=== PATIENT | female | born 1960 | race Caucasian/White ===

== ENCOUNTER → 2020-12-14 14:03 | Outpatient (CLI) | payer OTHER | END | disposition home or self-care (01) | LOC: D.LAB 14:03 | PROVIDERS: ATTEND Internal Medicine Pulmonary Disease | DX: J44.9 Chronic obstructive pulmonary disease, unspecified (principal) ==

== ENCOUNTER 2020-12-20 12:59 | Inpatient (IN) | payer MEDICARE ==
[~2020-12-20] VITALS: Ht 157.5 cm; Wt 79.4 kg
--- NOTE | 2020-12-20 13:50 | NUR ---
PT ARRIVED TO ROOM DIRECT ADMIT VIA WHEEL CHAIR. ON 2L NC. FAMILY AT BEDSIDE. ALL NEEDS MET AT THIS TIME. CLWR.
[2020-12-20 13:55] LABS: BASOPHILS 0.2 % (0-2); EOSINOPHILS 0.2 % (0-7); HEMATOCRIT 42.5 % (36.0-48.0); HEMOGLOBIN 13.9 g/dL (12-16); LYMPHOCYTES 4.7 % (15-50); MCHC 32.7 g/dL (31.0-37.0); MCV 91.6 fL (80.0-100.0); MEAN PLATELET VOLUME 10.3 fL (7.4-10.4); MONOCYTES 5.1 % (2-11); NEUTROPHILS 89.8 % (40-80); PLATELET COUNT 145 10x3/uL (130-400); RBC 4.64 10x6/uL (4.00-5.40); RDW 13.8 % (11.5-14.5); WBC 17.1 10x3/uL (4.8-10.8)
[2020-12-20] MEDS ORDERED: AMOXICILLIN500 M1 PO (14:04)
[2020-12-20] MEDS ORDERED: BAYER CHEWABLE81 MG PO (14:04)
[2020-12-20] MEDS ORDERED: LIPITOR20 MG PO (14:05)
[2020-12-20] MEDS ORDERED: BYSTOLIC5 MG PO (14:05)
[2020-12-20 14:07] LABS: CALC OSMOLALITY 280 mosm/kg (275-300); CALCIUM 9.4 mg/dL (8.5-10.1); CARBON DIOXIDE 27.3 mmol/L (21.0-32.0); CHLORIDE - SERUM 101 mmol/L (98-107); CREATININE - SERUM 0.7 mg/dL (0.6-1.3); GLUCOSE 188 mg/dL (74-106); POTASSIUM - SERUM 3.5 mmol/L (3.5-5.1); SODIUM 138 mmol/L (136-145); UREA NITROGEN 12 mg/dL (7-18); eGFR NON AFRICAN AMERICAN 90 mL/min (90-120)
[2020-12-20] MEDS ORDERED: CYANOCOBAL1000 MCG/4 IM (14:08)
[2020-12-20] MEDS ORDERED: FUROSEMIDE20 MG PO (14:09)
[2020-12-20] MEDS ORDERED: HYDROCODONE-AC1 EAC2 PO (14:10)
[2020-12-20] MEDS ORDERED: ISOSORBIDE MONO30 M1 PO (14:11)
[2020-12-20] MEDS ORDERED: SINGULAIR10 MG PO (14:12)
[2020-12-20] MEDS ORDERED: MULTI-DAY VITAM1 TAB PO (14:12)
[2020-12-20] MEDS ORDERED: MELATONIN5 M3 PO (14:12)
[2020-12-20] MEDS ORDERED: NITROSTAT0.4 MG SL (14:13)
[2020-12-20] MEDS ORDERED: CORTISPORIN OTI10 M1 EACH EAR (14:13)
[2020-12-20 14:14] LABS: ALBUMIN 3.1 g/dL (3.4-5.0); ALKALINE PHOSPHATASE 102 U/L (30-120); ALT (SGPT) 17 U/L (10-68); BILIRUBIN - TOTAL 1.26 mg/dL (0.2-1.3); PROTEIN - SERUM 7.4 g/dL (6.4-8.2)
[2020-12-20] MEDS ORDERED: TRINTELLIX20 MG PO (14:14)
[2020-12-20] MEDS ORDERED: ZINC50 MG PO (14:15)
[2020-12-20] MEDS ORDERED: ASCORBIC ACID500 MG PO (14:15)
[2020-12-20] MEDS ORDERED: ALBUTEROL SULF8.5 GM INH (14:16)
[2020-12-20] MEDS ORDERED: IPRAT-ALBUT 0.5-3 ML UPD (14:18)
[2020-12-20] MEDS ORDERED: SPIRIVA RESPIMAT4 GM INH (14:19)
[2020-12-20] MEDS ORDERED: SYMBICORT 16010.2 GM INH (14:20)
[2020-12-20] MEDS ORDERED: TUMS X-STR300 MG PO (14:20)
--- NOTE | 2020-12-20 15:37 | NUR ---
PT LYING IN BED. IV STARTED IN R HAND 22G. ABX STARTED AT THIS TIME. ALL NEEDS MET, CLWR.
[2020-12-20 15:51] VITALS: BP 95/60; BMI 32.1
[2020-12-20 16:00] VITALS: BP 95/60
--- NOTE | 2020-12-20 18:32 | NUR ---
PT SITTING ON SIDE OF BED. ASKED NURSE TO TURN O2 DOWN TO 2L. ALL NEEDS ARE MET. CLWR.
[2020-12-20 21:40] VITALS: BP 115/65
[2020-12-21 00:05] VITALS: BP 127/72
[2020-12-21 03:29] VITALS: BP 130/79
--- NOTE | 2020-12-21 06:01 | NUR ---
NO C/O OR CONCERNS DURING THE NIGHT. PTS DAUGHTER CURRENTLY AT BEDSIDE ASSISTING WITH BATH, DENIES NEEDS. CL IN REACH. WILL CTM.
[2020-12-21 06:38] LABS: BASOPHILS 0.1 % (0-2); EOSINOPHILS 0 % (0-7); HEMATOCRIT 42.2 % (36.0-48.0); HEMOGLOBIN 14.1 g/dL (12-16); LYMPHOCYTES 5.1 % (15-50); MCH 30.3 pg (26.0-34.0); MCHC 33.3 g/dL (31.0-37.0); MEAN PLATELET VOLUME 11.6 fL (7.4-10.4); MONOCYTES 0.9 % (2-11); NEUTROPHILS 93.9 % (40-80); PLATELET COUNT 166 10x3/uL (130-400); RBC 4.64 10x6/uL (4.00-5.40); RDW 13.7 % (11.5-14.5); WBC 13.4 10x3/uL (4.8-10.8)
[2020-12-21 07:08] LABS: ALKALINE PHOSPHATASE 106 U/L (30-120); ALT (SGPT) 18 U/L (10-68); BILIRUBIN - TOTAL 0.63 mg/dL (0.2-1.3); CALC OSMOLALITY 284 mosm/kg (275-300); CALCIUM 9.3 mg/dL (8.5-10.1); CARBON DIOXIDE 26.6 mmol/L (21.0-32.0); CHLORIDE - SERUM 102 mmol/L (98-107); CREATININE - SERUM 0.8 mg/dL (0.6-1.3); GLUCOSE 225 mg/dL (74-106); MAGNESIUM - SERUM 2.3 mg/dL (1.8-2.4); POTASSIUM - SERUM 4.1 mmol/L (3.5-5.1); PROTEIN - SERUM 7.6 g/dL (6.4-8.2); SODIUM 139 mmol/L (136-145); UREA NITROGEN 13 mg/dL (7-18); eGFR NON AFRICAN AMERICAN 77 mL/min (90-120)
--- NOTE | 2020-12-21 08:00 | NUR ---
PT RECEIVED AWAKE AND ALERT. STATES FEELS BETTER WITH BREATHING. MEDS GIVEN. ISOSORBIDE HELD DUE TO PT STOPPED TAKING PER CARDIO ORDERS.
[2020-12-21 09:20] VITALS: BP 135/63
--- NOTE | 2020-12-21 10:43 | NUR ---
INCENTIVE SPIROMETRY AT BEDSIDE, INSTRUCTIONS GIVEN. PT STATES SHE HAS USED DURING PRIOR VISITS.
[2020-12-21 12:42] VITALS: BP 132/60
[2020-12-21 13:21] VITALS: Ht 157.5 cm; Wt 79.4 kg
[2020-12-21 16:57] VITALS: BP 126/69
--- NOTE | 2020-12-21 19:45 | NUR ---
INITIAL ROUNDS AND ASSESSMENT COMPLETED. PT RESTING IN BED. DAUGHTER VISITING. UPDATE GIVEN TO DAUGHTER WITH PATIENTS PERMISSION. PT EXCITED THAT HER WBC COUNT IS GOING DOWN (DAUGHTER IS A NURSE). O2 @ 2L/NC WITH NON LABORED RESPIRATIONS. PIV TO RFA SALINE LOCKED. CALL LIGHT IN REACH.
[2020-12-21 20:45] VITALS: BP 127/59
--- NOTE | 2020-12-21 22:30 | NUR ---
ALL BEDTIME MEDS GIVEN. PT RESTING WITH NO DISTRESS. CALL LIGHT IN REACH.
--- NOTE | 2020-12-22 00:05 | NUR ---
PT RESTING WITH NO DISTRESS. CALL LIGHT IN REACH.
[2020-12-22 00:10] VITALS: BP 111/63
[2020-12-22 05:13] VITALS: BP 118/68
[2020-12-22 05:16] LABS: BASOPHILS 0.2 % (0-2); EOSINOPHILS 0 % (0-7); HEMATOCRIT 39.3 % (36.0-48.0); HEMOGLOBIN 13.2 g/dL (12-16); LYMPHOCYTES 6.5 % (15-50); MCH 30.7 pg (26.0-34.0); MCHC 33.5 g/dL (31.0-37.0); MCV 91.8 fL (80.0-100.0); MEAN PLATELET VOLUME 11.7 fL (7.4-10.4); MONOCYTES 2.4 % (2-11); NEUTROPHILS 90.9 % (40-80); PLATELET COUNT 159 10x3/uL (130-400); RBC 4.28 10x6/uL (4.00-5.40); RDW 13.7 % (11.5-14.5); WBC 14.8 10x3/uL (4.8-10.8)
[2020-12-22 05:36] LABS: ALBUMIN 2.8 g/dL (3.4-5.0); ANION GAP 10.7 mmol/L (8-16); BILIRUBIN - TOTAL 0.33 mg/dL (0.2-1.3); CARBON DIOXIDE 29.5 mmol/L (21.0-32.0); CREATININE - SERUM 0.9 mg/dL (0.6-1.3); MAGNESIUM - SERUM 2.2 mg/dL (1.8-2.4); POTASSIUM - SERUM 4.2 mmol/L (3.5-5.1); PROTEIN - SERUM 7.1 g/dL (6.4-8.2)
--- NOTE | 2020-12-22 08:18 | NUR ---
AAOX4 UPON ENTERING. ADMINISTERED MEDICATION, NO DIFFICULTIES. RESTING RECLINED IN BED. ASSESSMENT PERFORMED AT THIS TIME. DENIES ANY NEEDS. BED IN LOWEST POSITION, BED RAILS X2, CALL LIGHT WITHIN REACH. WILL CONTINUE POC.
[2020-12-22 08:25] VITALS: BP 113/77
--- NOTE | 2020-12-22 09:52 | NUR ---
I have reviewed this patient and I concur with the Shift Assessment completed by the Licensed Practical Nurse today this shift.
--- NOTE | 2020-12-22 15:12 | NUR ---
HUNG IV ABX, TOLERATED WELL. RESTING IN BED UPRIGHT. DENIES ANY NEEDS AT THIS TIME. WILL CONTINUE POC.
--- NOTE | 2020-12-22 20:00 | NUR ---
INITIAL ROUNDS AND ASSESSMENT COMPLETED. PT RESTING. CALL LIGHT IN REACH.
[2020-12-22 20:54] VITALS: BP 128/68
[2020-12-23 01:03] VITALS: BP 120/68
[2020-12-23 06:03] VITALS: BP 143/82
[2020-12-23 06:45] LABS: BASOPHILS 0.1 % (0-2); EOSINOPHILS 0 % (0-7); HEMATOCRIT 38.6 % (36.0-48.0); HEMOGLOBIN 12.7 g/dL (12-16); LYMPHOCYTES 8.8 % (15-50); MCH 29.9 pg (26.0-34.0); MCV 90.4 fL (80.0-100.0); MEAN PLATELET VOLUME 11.2 fL (7.4-10.4); MONOCYTES 2.4 % (2-11); NEUTROPHILS 88.7 % (40-80); PLATELET COUNT 167 10x3/uL (130-400); RBC 4.27 10x6/uL (4.00-5.40); RDW 13.6 % (11.5-14.5); WBC 11.5 10x3/uL (4.8-10.8)
[2020-12-23 08:00] VITALS: BP 138/70
[2020-12-23 08:12] LABS: ALBUMIN 2.8 g/dL (3.4-5.0); ALKALINE PHOSPHATASE 83 U/L (30-120); BILIRUBIN - TOTAL 0.22 mg/dL (0.2-1.3); CALC OSMOLALITY 285 mosm/kg (275-300); CALCIUM 8.7 mg/dL (8.5-10.1); CARBON DIOXIDE 26.2 mmol/L (21.0-32.0); CHLORIDE - SERUM 102 mmol/L (98-107); CREATININE - SERUM 0.8 mg/dL (0.6-1.3); GLUCOSE 270 mg/dL (74-106); POTASSIUM - SERUM 4.3 mmol/L (3.5-5.1); PROTEIN - SERUM 6.7 g/dL (6.4-8.2); SODIUM 137 mmol/L (136-145); UREA NITROGEN 18 mg/dL (7-18); eGFR NON AFRICAN AMERICAN 77 mL/min (90-120)
[2020-12-23 08:14] LABS: ALT (SGPT) 88 U/L (10-68)
[2020-12-23 12:00] VITALS: BP 153/80
--- NOTE | 2020-12-23 13:44 | NUR ---
IV RESTARTED TO LFA WITH 22 GAUGE CATH X 1 STICK AND FLUSHED WITH NS. LINE IS PATENT.
[2020-12-23 16:00] VITALS: BP 123/82
[2020-12-23 21:00] VITALS: BP 158/93
[2020-12-24] VITALS: BP 138/91
--- NOTE | 2020-12-24 03:05 | NUR ---
RESTING IN BED WITH NO DISTRESS. RESPS EVEN/NONLABORED. CALL LIGHT IN REACH.
[2020-12-24 04:00] VITALS: BP 142/76
[2020-12-24 06:40] LABS: BASOPHILS 0.2 % (0-2); EOSINOPHILS 0 % (0-7); HEMATOCRIT 37.4 % (36.0-48.0); HEMOGLOBIN 12.8 g/dL (12-16); LYMPHOCYTES 12.7 % (15-50); MCH 30.8 pg (26.0-34.0); MCHC 34.2 g/dL (31.0-37.0); MCV 90.1 fL (80.0-100.0); MEAN PLATELET VOLUME 11.2 fL (7.4-10.4); MONOCYTES 4.4 % (2-11); NEUTROPHILS 82.7 % (40-80); PLATELET COUNT 159 10x3/uL (130-400); RBC 4.15 10x6/uL (4.00-5.40); RDW 13.6 % (11.5-14.5); WBC 8.8 10x3/uL (4.8-10.8)
[2020-12-24 07:36] LABS: ALBUMIN 2.8 g/dL (3.4-5.0); ALKALINE PHOSPHATASE 81 U/L (30-120); ALT (SGPT) 86 U/L (10-68); BILIRUBIN - TOTAL 0.34 mg/dL (0.2-1.3); CALC OSMOLALITY 284 mosm/kg (275-300); CALCIUM 8.9 mg/dL (8.5-10.1); CARBON DIOXIDE 31.1 mmol/L (21.0-32.0); CHLORIDE - SERUM 103 mmol/L (98-107); CREATININE - SERUM 0.8 mg/dL (0.6-1.3); GLUCOSE 233 mg/dL (74-106); MAGNESIUM - SERUM 2.2 mg/dL (1.8-2.4); POTASSIUM - SERUM 4.2 mmol/L (3.5-5.1); PROTEIN - SERUM 6.6 g/dL (6.4-8.2); SODIUM 138 mmol/L (136-145); UREA NITROGEN 17 mg/dL (7-18); eGFR NON AFRICAN AMERICAN 77 mL/min (90-120)
[2020-12-24 07:45] VITALS: BP 154/67
--- NOTE | 2020-12-24 08:00 | NUR ---
PT RECEIVED AWAKE AND ALERT SITTING UP IN BED. ASKING FOR COFFEE. LITTLE CRANKY AT PRESENT.
[2020-12-24 11:44] VITALS: BP 135/78
--- NOTE | 2020-12-24 13:32 | NUR ---
Nutrition Follow-up: Overall good PO intake. ST eval pending. Glu remains elevated (188->225->251-> 270->233). Diet: Cardiac PO intake: 81% avg x 4 meals No new wt; last wt: 175# (12/21) Labs noted: Glu 233, Alb 2.8 Meds noted: Miralax, Florajen, zinc sulfate, vit C, Lasix, Solumedrol -Change to cardiac carb consistent diet 2/2 consistently elevated Glu. -RD will follow up within 3 days.
[2020-12-24 15:37] VITALS: BP 135/80
--- NOTE | 2020-12-24 19:52 | NUR ---
RECIEVED UP IN BED WITH EYES OPEN AND TV ON. A/O UP AD BENTON TO B/R. DENIES ANY NEEDS AT THIS TIME.
[2020-12-24 21:00] VITALS: BP 147/77
[2020-12-25] VITALS: BP 165/78
[2020-12-25 05:12] LABS: BASOPHILS 0 % (0-2); EOSINOPHILS 0 % (0-7); HEMATOCRIT 39.3 % (36.0-48.0); HEMOGLOBIN 13.4 g/dL (12-16); LYMPHOCYTES 10.9 % (15-50); MCH 30.8 pg (26.0-34.0); MCHC 34.1 g/dL (31.0-37.0); MCV 90.3 fL (80.0-100.0); MEAN PLATELET VOLUME 10.8 fL (7.4-10.4); MONOCYTES 3.2 % (2-11); NEUTROPHILS 85.9 % (40-80); PLATELET COUNT 184 10x3/uL (130-400); RBC 4.35 10x6/uL (4.00-5.40); RDW 13.5 % (11.5-14.5); WBC 10.2 10x3/uL (4.8-10.8)
[2020-12-25 05:50] LABS: ALBUMIN 2.8 g/dL (3.4-5.0); ALKALINE PHOSPHATASE 83 U/L (30-120); ALT (SGPT) 75 U/L (10-68); BILIRUBIN - TOTAL 0.36 mg/dL (0.2-1.3); CALC OSMOLALITY 283 mosm/kg (275-300); CALCIUM 8.7 mg/dL (8.5-10.1); CARBON DIOXIDE 31.9 mmol/L (21.0-32.0); CHLORIDE - SERUM 103 mmol/L (98-107); CREATININE - SERUM 0.8 mg/dL (0.6-1.3); GLUCOSE 226 mg/dL (74-106); MAGNESIUM - SERUM 2.3 mg/dL (1.8-2.4); POTASSIUM - SERUM 4.3 mmol/L (3.5-5.1); PROTEIN - SERUM 6.5 g/dL (6.4-8.2); SODIUM 138 mmol/L (136-145); UREA NITROGEN 14 mg/dL (7-18); eGFR NON AFRICAN AMERICAN 77 mL/min (90-120)
--- NOTE | 2020-12-25 07:22 | NUR ---
PT SITTING UP IN BED. GAVE FRESH WATER. ON 2L NC, SOB AND RR LABORED. HAS A WHEEZE ON INSPIRATION AND COUGHING OFTEN. ALL NEEDS MET AT THIS TIME. CLWR.
[2020-12-25 08:00] VITALS: BP 162/83
[2020-12-25] MEDS ORDERED: TESSALON PERLE100 MG PO (11:39)
[2020-12-25] MEDS ORDERED: FLORAJEN DIGES1 EACH PO (11:40)
[2020-12-25] MEDS ORDERED: MIRALAX17 GM PO (11:40)
[2020-12-25] MEDS ORDERED: MUCINEX DM ER1 EAC1 PO (11:40)
[2020-12-25] MEDS ORDERED: AZITHROMYCIN500 MG PO (11:41)
[2020-12-25] MEDS ORDERED: VITAMIN C PO (11:42)
[2020-12-25] MEDS ORDERED: OMNICEF300 MG PO (11:42)
[2020-12-25] MEDS ORDERED: PREDNISONE10 MG PO (11:42)
--- NOTE | 2020-12-25 14:32 | MORECARE ---
CASE MANAGEMENT DISCHARGE SUMMARY PATIENT: JEFFREY GARCIA UNIT: [id number] ADM DATE: 12/20/20 AGE: 60 : 60 SEX: F ROOM/BED: D.[facility] AUTHOR: MOHINI,DOC PHYSICIAN: REFERRING PHYSICIAN: NERISSA FLOWERS MD DATE OF SERVICE: 12/25/20 Case Management Discharge Planning Summary DCP REVIEW SUMMARY ANTICIPATED D/C DATE: 12/25/2020 EXPECTED LOS : 5 CASE STATUS: DCP Initiated INITIAL REVIEW: 12/20/2020 INITIAL REVIEWER: Bette Heck FINAL DISCHARGE DISPOSITION: 01 : Home or Self Care (Routine Discharge) FINAL REVIEWER: FINAL REVIEW DATE: DCP Focus Questions & Answers QUESTION: ANSWER : PATIENT: JEFFREY GARCIA ENCOUNTER: [id number] MEDICAL RECORD#: [id number] ADMISSION DATE: 12/20/2020 DISCHARGE DATE: ATTENDING MD: NERISSA DOBBINS : AGE: 60 MARITAL STATUS: S DC PLAN ID: [id number] FACILITY: [facility] PRINTED ON: 12/25/20 14:32 CT All edits/amendments must be made on the electronic document DICTATION DATE: 12/25/201431 ASSISTANT MEDIA BUYER: TAMEKA 12/25/201431 RPT#: [id number] DC DATE: STATUS: ADM IN [facility] [address] [place] [address] END OF REPORT
--- NOTE | 2020-12-25 14:45 | MORECARE ---
CASE MANAGEMENT DISCHARGE SUMMARY PATIENT: JEFFREY GARCIA UNIT: [id number] ADM DATE: 12/20/20 AGE: 60 : 60 SEX: F ROOM/BED: D.9336 AUTHOR: MOHNII,DOC PHYSICIAN: REFERRING PHYSICIAN: NERISSA FLOWERS MD DATE OF SERVICE: 12/25/20 Case Management Discharge Planning Summary COMMENTS ENTERED DATE: 12/25/20 14:37 CT COMMENT TYPE: Discharge Planning REVIEWER: Bette Heck CM met with patient to complete discharge planning assessment and offer availability of additional needed services. Patient states that she lives independently at home prior to admission. Patient verified that home environment is safe and has electricity and running water. Patient denies need for transportation and state that she has funds for services and medications if needed. PCP is Dr. Simmons and patient uses [facility] on [address] for pharmacy. CM offered and discussed home health, rehab services, and need for any medical equipment. Patient has home oxygen with a portable unit, and nebulizer in place. Equipment obtained from [employer] Patient. Transportation home will be provided by her daughter Nydia Rivas ([phone]). Patient verbalized understanding of signed forms. IMM served, and signed copy placed on chart. JESSICA form signed for refusal of additional services or needs at this time, placed on chart. DCP REVIEW SUMMARY ANTICIPATED D/C DATE: 12/25/2020 EXPECTED LOS : 5 CASE STATUS: DCP Initiated INITIAL REVIEW: 12/20/2020 INITIAL REVIEWER: Bette Heck FINAL DISCHARGE DISPOSITION: 01 : Home or Self Care (Routine Discharge) FINAL REVIEWER: FINAL REVIEW DATE: DCP Focus Questions & Answers DCP Screen QUESTION: ANSWER High Risk Factors: : Hosp related to CHF, COPD, DM, End Stage Ds, CVA, CA DCP Evaluation QUESTION: ANSWER Patient and/or caregiver agree upon recommended discharge plan? : Yes Family / Caregiver's ability to cope with chronic illness: : a. Adequate (ability to meet patient's medical needs, ensures patient attends medical appts.) Patient's current cognitive status: : *Oriented to person, place, situation, time and present Patient's ability to cope with chronic illness : d. No chronic illness Does the patient have the ability to pay for or attain post discharge needs / services? : Yes Functional screen assessment: : No issues identified Family / Caregiver's ability to cope with chronic illness: : a. Adequate (ability to meet patient's medical needs, ensures patient attends medical appts.) Physical Status: : Independent with ADL's Equipment needed for post hospitalization: : None Is there a likelihood that the patient will require additional services to return to the preadmission environment? : N/A Living Arrangements: : Home Alone with Support Results of this evaluation have been discussed with: : Patient Patient with capacity for self-care or can be cared for in same environment as prior to hospitalization? : Yes Baseline cognitive status: : *Oriented to person, place, situation, time and present Physical environment modification needed / anticipated for discharge: : N/A Medication Management: : Patient states can read and understand medication labels Medication Management: : Patient states they do have transportation to excelsior picker medications Medication Management: : Patient states can afford medications Planned post hospital services available for patient? : N/A Pharmacy name(s): : [facility] Planned post hospital services covered by insurance plan? : N/A Does Patient have transportation to get home and to follow-up medical appointments when discharged from the hospital? : Yes Would patient like to participate in any Care Coordination programs (if applicable): : Not applicable Does the patient have electricity at home? : Yes Does the patient have running water in their house? : Yes Equipment in use: : Nebulizer Other Equipment comments: : HOME AND PORTABLE OXYGEN Equipment agency name and contact information: : [facility] PATIENT Mental health screen: : No mental health history Psychosocial status: : Independent adult (18-64) Abuse/Neglect: : None Resources / Services in place: : [facility] [place] DCP Re-evaluation QUESTION: ANSWER Would patient like to participate in any Care Coordination programs (if applicable): : Not applicable PATIENT: JEFFREY GARCIA ENCOUNTER: [id number] MEDICAL RECORD#: [id number] ADMISSION DATE: 12/20/2020 DISCHARGE DATE: ATTENDING MD: NERISSA DOBBINS : AGE: 60 MARITAL STATUS: S DC PLAN ID: [id number] FACILITY: [facility] PRINTED ON: 12/25/20 14:45 CT All edits/amendments must be made on the electronic document DICTATION DATE: 12/25/201444 GEOPHYSICAL OBSERVER: TAMEKA 12/25/201444 RPT#: [id number] DC DATE: STATUS: ADM IN [facility] [address] [place] [address] END OF REPORT
[2020-12-25 16:00] VITALS: BP 130/74
--- NOTE | 2020-12-25 16:54 | NUR ---
PT IV TAKEN OUT. CDI. PT LEFT VIA WHEELCHAIR WITH FAMILY MEMBER.
--- NOTE | 2020-12-25 17:15 | MORECARE ---
CASE MANAGEMENT DISCHARGE SUMMARY PATIENT: JEFFREY GARCIA UNIT: [id number] ADM DATE: 12/20/20 AGE: 60 : 60 SEX: F ROOM/BED: D.3366 AUTHOR: MOHINI,DOC PHYSICIAN: REFERRING PHYSICIAN: NERISSA FLOWERS MD DATE OF SERVICE: 12/25/20 Case Management Discharge Planning Summary COMMENTS ENTERED DATE: 12/25/20 14:37 CT COMMENT TYPE: Discharge Planning REVIEWER: Bette Heck CM met with patient to complete discharge planning assessment and offer availability of additional needed services. Patient states that she lives independently at home prior to admission. Patient verified that home environment is safe and has electricity and running water. Patient denies need for transportation and state that she has funds for services and medications if needed. PCP is Dr. Simmons and patient uses [facility] on [address] for pharmacy. CM offered and discussed home health, rehab services, and need for any medical equipment. Patient has home oxygen with a portable unit, and nebulizer in place. Equipment obtained from [employer] Patient. Transportation home will be provided by her daughter Nydia Rivas ([phone]). Patient verbalized understanding of signed forms. IMM served, and signed copy placed on chart. JESSICA form signed for refusal of additional services or needs at this time, placed on chart. DCP REVIEW SUMMARY ANTICIPATED D/C DATE: 12/25/2020 EXPECTED LOS : 5 CASE STATUS: DCP Initiated INITIAL REVIEW: 12/20/2020 INITIAL REVIEWER: Bette Heck FINAL DISCHARGE DISPOSITION: 01 : Home or Self Care (Routine Discharge) FINAL REVIEWER: FINAL REVIEW DATE: DCP Focus Questions & Answers DCP Screen QUESTION: ANSWER High Risk Factors: : Hosp related to CHF, COPD, DM, End Stage Ds, CVA, CA DCP Evaluation QUESTION: ANSWER Patient and/or caregiver agree upon recommended discharge plan? : Yes Family / Caregiver's ability to cope with chronic illness: : a. Adequate (ability to meet patient's medical needs, ensures patient attends medical appts.) Patient's current cognitive status: : *Oriented to person, place, situation, time and present Patient's ability to cope with chronic illness : d. No chronic illness Does the patient have the ability to pay for or attain post discharge needs / services? : Yes Functional screen assessment: : No issues identified Family / Caregiver's ability to cope with chronic illness: : a. Adequate (ability to meet patient's medical needs, ensures patient attends medical appts.) Physical Status: : Independent with ADL's Equipment needed for post hospitalization: : None Is there a likelihood that the patient will require additional services to return to the preadmission environment? : N/A Living Arrangements: : Home Alone with Support Results of this evaluation have been discussed with: : Patient Patient with capacity for self-care or can be cared for in same environment as prior to hospitalization? : Yes Baseline cognitive status: : *Oriented to person, place, situation, time and present Physical environment modification needed / anticipated for discharge: : N/A Medication Management: : Patient states can read and understand medication labels Medication Management: : Patient states they do have transportation to chart picker medications Medication Management: : Patient states can afford medications Planned post hospital services available for patient? : N/A Pharmacy name(s): : [facility] Planned post hospital services covered by insurance plan? : N/A Does Patient have transportation to get home and to follow-up medical appointments when discharged from the hospital? : Yes Would patient like to participate in any Care Coordination programs (if applicable): : Not applicable Does the patient have electricity at home? : Yes Does the patient have running water in their house? : Yes Equipment in use: : Nebulizer Other Equipment comments: : HOME AND PORTABLE OXYGEN Equipment agency name and contact information: : [facility] PATIENT Mental health screen: : No mental health history Psychosocial status: : Independent adult (18-64) Abuse/Neglect: : None Resources / Services in place: : [facility] [place] DCP Re-evaluation QUESTION: ANSWER Would patient like to participate in any Care Coordination programs (if applicable): : Not applicable PATIENT: JEFFREY GARCIA ENCOUNTER: [id number] MEDICAL RECORD#: [id number] ADMISSION DATE: 12/20/2020 DISCHARGE DATE: 12/25/2020 ATTENDING MD: NERISSA DOBBINS : AGE: 60 MARITAL STATUS: S DC PLAN ID: [id number] FACILITY: [facility] PRINTED ON: 12/25/20 17:15 CT All edits/amendments must be made on the electronic document DICTATION DATE: 12/25/20 6808 STOREKEEPER ENGINEERING: TAMEKA 12/25/20 1715 RPT#: [id number] DC DATE:12/25/20 STATUS: DIS IN [facility] [address] [place] [address] END OF REPORT
--- NOTE | 2020-12-26 22:06 | MORECARE ---
CASE MANAGEMENT DISCHARGE SUMMARY PATIENT: JEFFREY GARCIA UNIT: [id number] ADM DATE: 12/20/20 AGE: 60 : 60 SEX: F ROOM/BED: D.9076 AUTHOR: MOHINI,DOC PHYSICIAN: REFERRING PHYSICIAN: NERISSA FLOWERS MD DATE OF SERVICE: 12/26/20 Case Management Discharge Planning Summary COMMENTS ENTERED DATE: 12/25/20 14:37 CT COMMENT TYPE: Discharge Planning REVIEWER: Bette Heck CM met with patient to complete discharge planning assessment and offer availability of additional needed services. Patient states that she lives independently at home prior to admission. Patient verified that home environment is safe and has electricity and running water. Patient denies need for transportation and state that she has funds for services and medications if needed. PCP is Dr. Simmons and patient uses [facility] on [address] for pharmacy. CM offered and discussed home health, rehab services, and need for any medical equipment. Patient has home oxygen with a portable unit, and nebulizer in place. Equipment obtained from [facility] Patient. Transportation home will be provided by her daughter Nydia Rivas ([phone]). Patient verbalized understanding of signed forms. IMM served, and signed copy placed on chart. JESSICA form signed for refusal of additional services or needs at this time, placed on chart. DCP REVIEW SUMMARY ANTICIPATED D/C DATE: 12/25/2020 EXPECTED LOS : 5 CASE STATUS: DCP Initiated INITIAL REVIEW: 12/20/2020 INITIAL REVIEWER: Bette Heck FINAL DISCHARGE DISPOSITION: 01 : Home or Self Care (Routine Discharge) FINAL REVIEWER: FINAL REVIEW DATE: DCP Focus Questions & Answers DCP Screen QUESTION: ANSWER High Risk Factors: : Hosp related to CHF, COPD, DM, End Stage Ds, CVA, CA DCP Evaluation QUESTION: ANSWER Family / Caregiver's ability to cope with chronic illness: : a. Adequate (ability to meet patient's medical needs, ensures patient attends medical appts.) Patient's ability to cope with chronic illness : d. No chronic illness Patient's current cognitive status: : *Oriented to person, place, situation, time and present Patient and/or caregiver agree upon recommended discharge plan? : Yes Physical Status: : Independent with ADL's Family / Caregiver's ability to cope with chronic illness: : a. Adequate (ability to meet patient's medical needs, ensures patient attends medical appts.) Functional screen assessment: : No issues identified Does the patient have the ability to pay for or attain post discharge needs / services? : Yes Living Arrangements: : Home Alone with Support Is there a likelihood that the patient will require additional services to return to the preadmission environment? : N/A Equipment needed for post hospitalization: : None Baseline cognitive status: : *Oriented to person, place, situation, time and present Patient with capacity for self-care or can be cared for in same environment as prior to hospitalization? : Yes Results of this evaluation have been discussed with: : Patient Physical environment modification needed / anticipated for discharge: : N/A Medication Management: : Patient states can afford medications Medication Management: : Patient states they do have transportation to meat pickler medications Medication Management: : Patient states can read and understand medication labels Pharmacy name(s): : [facility] [address] [facility] Planned post hospital services available for patient? : N/A Does Patient have transportation to get home and to follow-up medical appointments when discharged from the hospital? : Yes Planned post hospital services covered by insurance plan? : N/A Would patient like to participate in any Care Coordination programs (if applicable): : Not applicable Does the patient have electricity at home? : Yes Does the patient have running water in their house? : Yes Equipment in use: : Nebulizer Other Equipment comments: : HOME AND PORTABLE OXYGEN Equipment agency name and contact information: : [facility] PATIENT Mental health screen: : No mental health history Psychosocial status: : Independent adult (18-64) Abuse/Neglect: : None Resources / Services in place: : [facility] [place] DCP Re-evaluation QUESTION: ANSWER Would patient like to participate in any Care Coordination programs (if applicable): : Not applicable PATIENT: JEFFREY GARCIA ENCOUNTER: [id number] MEDICAL RECORD#: [id number] ADMISSION DATE: 12/20/2020 DISCHARGE DATE: 12/25/2020 ATTENDING MD: NERISSA DOBBINS : AGE: 60 MARITAL STATUS: S DC PLAN ID: [id number] FACILITY: [facility] PRINTED ON: 12/26/20 22:06 CT All edits/amendments must be made on the electronic document DICTATION DATE: 12/26/202205 PERSONAL CARE AIDE: TAMEKA 12/26/20 2206 RPT#: [id number] DC DATE:12/25/20 STATUS: DIS IN [facility] [address] [place] [address] END OF REPORT
== END 2020-12-25 17:05 | disposition home or self-care (01) | DRG 193 ==
LOC: D.M2 12:59
PROVIDERS: ADMIT Family Medicine; ATTEND Family Medicine
DX: J18.9 Pneumonia, unspecified organism (principal); J96.21 Acute and chronic respiratory failure with hypoxia; J44.1 Chronic obstructive pulmonary disease with (acute) exacerbation; J44.0 Chronic obstructive pulmonary disease with (acute) lower respiratory infection; E78.5 Hyperlipidemia, unspecified; F17.200 Nicotine dependence, unspecified, uncomplicated; I25.10 Atherosclerotic heart disease of native coronary artery without angina pectoris; K59.00 Constipation, unspecified; I11.0 Hypertensive heart disease with heart failure; I50.9 Heart failure, unspecified; K21.9 Gastro-esophageal reflux disease without esophagitis